=== PATIENT | female | born 1950 | race Caucasian/White ===

== ENCOUNTER 2023-02-05 13:26 | Outpatient (CLI) | payer MEDICARE, SELFPAY ==
[2023-02-05 14:11] LABS: Anion Gap 7 mmol/L (8-16); Blood Urea Nitrogen 21 mg/dL (7-17); Carbon Dioxide 28 mmol/L (22-30); Chloride 106 mmol/L (98-107); Estimated Glomerular Filt Rate > 60; Glucose 100 mg/dL (65-110); Potassium 3.9 mmol/L (3.4-5.0); Sodium 141 mmol/L (137-145)
== END 2023-02-05 13:27 | disposition home or self-care (01) ==
LOC: ANHWCLAB 13:27
PROVIDERS: PCP Internal Medicine; Visit Provider Internal Medicine Endocrinology, Diabetes & Metabolism
DX: M81.0 Age-related osteoporosis without current pathological fracture (principal); E55.9 Vitamin D deficiency, unspecified
CPT/HCPCS: 36415; 80048; 82306

== ENCOUNTER 2024-08-26 13:41 | Outpatient (CLI) | payer MEDICARE, SELFPAY ==
--- NOTE | ~2024-08-26 | DEXA_ITS ---
Bone Density Report Name: NITISH PIERCE Age: 73 Sex: Female Ethnicity: White Date of : 1950 Indication: postmenopausal; screening for osteoporosis; parental hip fracture; height loss; prior fracture; cancer; Referring Provider: BERNARDO ANDERSON Study: Bone densitometry was performed. Exam Date: August 26, 2024 Accession number: [id number] Bone Density: Region BMD T-score Z-score Classification AP Spine(L1-L4) 0.818 -2.1 0.2 Osteopenia Femoral Neck (Left) 0.616 -2.1 -0.1 Osteopenia Total Hip (Left) 0.762 -1.5 0.2 Osteopenia World Health Organization criteria for BMD impression classify patients as: Normal (T-score at or above -1.0), Osteopenia (T-score between -1.0 and -2.5), or Osteoporosis (T-score at or below -2.5). 10-year Fracture Risk: FRAX not reported because: Prior hip or vertebral fracture Treated for osteoporosis Clinical Information Provided by Patient: Have had a previous hip or vertebral fracture Has had a low trauma fracture Parent has had a hip fracture Is being treated for osteoporosis Has used the following medications: Boniva (i.e. ibandronate), Vitamin D Has the following medical conditions: Cancer Patient maximum height was 67 Menopause Age: 50 No regular weight bearing exercise Onset of menses at age 14 Number of children 3 Impression: The patient has low bone mass, based on the Total Spine T-score. The patient has risk factors, including: parental hip fracture, previous fracture. Discussion: It is important to ask patients whether they are taking their medications and to encourage continued and appropriate compliance with their osteoporosis therapies to reduce fracture risk. It is also important to review their risk factors and encourage appropriate calcium and vitamin D intakes, exercise, fall prevention and other lifestyle measures. Follow-Up: Consider a repeat BMD and Vertebral Fracture Assessment (VFA) exam in 2 years or sooner if medically necessary, to reassess this patient's status. Reported by: ELYSIA on 08/26/2024 2:19:00 PM. Reviewed, dictated and finalized at location AShanna SUN
--- OUTSIDE RECORDS SUMMARY | 2024-08-26 15:18 | XMS_ITS | Encounter Summary ---
Author Organization [facility] Address [address] [place] [address] Care Team Providers Care Senior Staff Specialized Employment Name Role Phone Xavier Montesinos MD Unavailable Unavail able Xavier Montesinos MD Primary Care Provider U Carol Murray NP Primary Care Provider [phone] Ivanna Ferreira MD Primary Care Provider [phone] Mark Pankaj DO Unavailable [phone] Encounter Details Date Type Department Care Team (Late st Contact Info) Description 04/06/2013 Abstract [facility] [address] [place] [address] , Generic MD Leander Social History Tobacco Use Types Packs/Day Years Used Date Smoking Tobacco: Never Assessed Comments Unknown Sex and Gender Information Value Date Recorded Sex Assigned at Female 06/24/2024 8:59 AM PROFESSOR/NURSE ANESTHETIST Legal Sex Female 4:24 PM CDT Gender Identity Not on file Sexual Orientation Not on file documented as of this encounter Plan of Treatment Upcoming Encounters Date Type Department Care Team (Late st Contact Info) Description 09/02/2024 8:00 AM CDT Office Visit [facility] Family & Internal Medicine [facility] [address] [place] [address] [place] [address] [facility]. [address] [place] [address] documented as of this encounter Visit Diagnoses Not on filedocumented in this encounter Care Teams Senior Staff Specialized Employment Relationship Specialty Start Date End Date Xavier Montesinos MD PCP - [facility] - [facility] Attributed Provider 08/08/18 06/10/20 Xavier Montesinos MD PCP - General INTERNAL MEDICINE 11/19/18 09/13/22 [place] [address] [facility] [place] [address] PCP - General Nurse Practitioner Family 09/14/22 10/03/22 [place] [address] [facility]. [address] [place] [address] PCP - General FAMILY PRACTICE 10/04/22 [place] [address] [facility] [address] [place] [phone] ORTHOPAEDIC SURGERY 04/02/24 documented as of this encounter
--- OUTSIDE RECORDS SUMMARY | 2024-08-26 15:18 | XMS_ITS | Clinical Summary ---
Author Organization [facility] Address [address], [facility] [address] [place] [address] Phone Care Team Providers Care Chefs Name Role Phone Donnell Roberts MD Unavailable [phone] Xavier Montesinos MD Primary Care Provider + Allergies Active Allergy Reactions Criticality Noted Date Comments Wound Dressing Adhesive Rash Low 02/20/2023 Medications Ascorbic Acid 500 MG Capsule CR Take 2 Capsules by mouth. 01/10/2016 Active Cholecalciferol 50 mcg Tablet Take 1 Tablet by mouth daily. Active ibuprofen (MOTRIN) 400 MG Tablet Take 400 mg by mouth. 01/20/2018 Active Daily Multiple Vitamins Tablet Take 1 Tablet by mouth daily. 06/04/2013 Active Omeprazole Magnesium 20 MG Tablet Delayed Response Take 1 Tablet by mouth daily. 06/04/2013 Active diclofenac (VOLTAREN) 75 MG Tablet Delayed Response Take 75 mg by mouth 2 times daily. 01/08/2023 Active ibandronate (BONIVA) 150 MG Tablet TAKE 1 TABLET BY MOUTH MONTHLY 02/09/2023 Active exemestane (AROMASIN) 25 MG TabletIndicatio ns:Ductal carcinoma in situ (DCIS) of right breast Take 1 Tablet by mouth daily 90 Tablet 3 03/26/2024 Active Active Problems No known active problems Immunizations Immunization Administration Dates Next Due Influenza Vaccine,unspecifie d Formulation 03/27/2019,03/19/2018,03/26/2016,2012 Influenza, High-dose, Quadrivalent 03/23/2021, Influenza, Seasonal, Injecta ble, Undefined 03/30/2013 Influenza, high-dose, trivalent, PF 03/15/2020 Pneumococcal Vaccine - 13 Valent 08/10/2019 Pneumococcal Vaccine Adult - 23 Valent 08/17/2020 TDAP Vaccine 12/28/2019 Td Vaccine (preservative free) 12/15/2013 Zoster Vaccine Recombinant 07/28/2019,04/22/2019 Zoster Vaccine, live 03/18/2015 Family History Medical History Relation Name Comments Cancer Father lung Emphysema Father Diabetes Maternal Grandmother Heart Disease Maternal Grandmother Kidney Disease Maternal Grandmother Macular Degeneration Maternal Grandmother Congestive Heart Failure Mother Dementia Mother Heart Disease Mother Hypertension Mother Macular Degeneration Mother Thyroid Disease Mother Cancer Sister endometrial Relation Name Status Comments Father Maternal Grandfather Maternal Grandmother Mother Alive Paternal Grandfather Paternal Grandmother Sister Social History Tobacco Use Types Packs/Day Years Used Date Smoking Tobacco: Never Smokeless Tobacco: Never Tobacco Cessation:Counseling Given: Not Answered Alcohol Use Standard Drinks/Week Comments Yes 0 (1 standard drink = 0.6 oz pur e alcohol) occassionally PHQ-2 Answer Date Recorded Total Score - Questions 1-9 0 05/0 10/2021 Comments Unknown Sex and Gender Information Value Date Recorded Sex Assigned at Not on file 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 Gender Identity Not on file Sexual Orientation Not on file Last Filed Vital Signs Vital Sign Reading Time Taken Comments Blood Pressure 122/82 03/26/2024 8:28 AM CDT Pulse 53 03/26/2024 8:28 AM CDT Temperature 35.8 C (96.4 F) 03/26/2024 8:28 AM CDT Respiratory Rate 18 03/26/2024 8:28 AM CDT Oxygen Saturation 98% 03/26/2024 8:28 AM CDT Inhaled Oxygen Concentration - - Weight 85.2 kg (187 lb 12.8 oz) 03/26/2024 8:28 AM CDT Height 167.6 cm (5' 6 ) 03/26/2024 8:28 AM CDT Body Mass Index 30.31 03/26/2024 8:28 AM CDT Plan of Treatment Upcoming Encounters Date Type Department Care Team (Late st Contact Info) Description 09/24/2024 8:45 AM CDT Office Visit [facility] [address] [place] [address] Donnell Roberts MD [address] [place] [address] Health Maintenance Due Date Last Done Comments Hepatitis C Virus (HCV) Screening 1950 Cologuard 2000 Immunochemical Fecal Occult Blood 2000 Respiratory Syncytial Virus (RSV) Immunization (Adult) (1 - Risk 60-74 years 1-dose series) 2010 SARS-COV-2 Immunization ( season) 2024 05/23/2023, 12/07/2021, 05/13/2021, Additional history exists DEXA Bone Density 04/13/2024 04/13/2022 Mammogram 04/15/2024 04/15/2023, 11/2022, 04/13/2022, Additional history exists Colonoscopy 04/28/2031 04/28/2021, 06/10/2010 Colorectal Cancer Screening 04/28/2031 Td Immunization Every 10 Years (Adults With 1 Tdap) 10/01/2033 10/02/2023, 12/28/2019, 12/15/2013 04/28/2021, 06/10/2010 Zoster Immunization Completed 07/28/2019, 04/22/2019, 03/18/2015 Pneumococcal Immunization (50+ years) Completed 08/17/2020, 08/10/2019 DTaP/Tdap/Td Immunization Discontinued 2023, 12/28/2019, 12/15/2013 Influenza Immunization Completed , 03/20/2023, 03/28/2022, Additional history exists Hepatitis B Immunization Aged Out No longer eligible based on patient's age to complete this topic Meningococcal Immunization (ACWY) Aged Out No longer eligible based on patient's age to complete this topic Rotavirus Immunization Aged Out No lo nger eligible based on patient's age to complete this topic Insurance MEDICARE C [employer]ET[employer] Care Teams Chefs Relationship Specialty [place] [address] [place] [address] PCP - General Internal Medicine 10/12/21 Donnell Roberts MD [address] [place] [phone] Consulting Physician Oncology 05/01/21
--- OUTSIDE RECORDS SUMMARY | 2024-08-26 15:18 | XMS_ITS | Encounter Summary ---
Author Organization [facility] Address [address] [place] [address] Phone Care Team Providers Care Police Matron Name Role Phone Donnell Roberts MD Unavailable [phone] Xavier Montesinos MD Primary Care Provider + Reason for Visit * Reason Comments Medication Refill Encounter Details Date Type Department Care Team (Late st Contact Info) Description 07/29/2022 Refill [facility] [address] [phone] Donnell Roberts MD [address] [place] [phone] Medication Refill Social History Tobacco Use Types Packs/Day Years Used Date Smoking Tobacco: Never Smokeless Tobacco: Never Alcohol Use Standard Drinks/Week Comments Yes 0 (1 standard drink = 0.6 oz pur e alcohol) occassionally PHQ-2 Answer Date Recorded Total Score - Questions 1-9 0 05/0 10/2021 Comments Unknown Sex and Gender Information Value Date Recorded Sex Assigned at Not on file 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 Please fill if appropriate. ILITY STRATEGIST documented in this encounter Plan of Treatment Upcoming Encounters Date Type Department Care Team (Late st Contact Info) Description 09/24/2024 8:45 AM CDT Office Visit [facility] [address] [phone] Donnell Roberts MD [address] [place] [phone] documented as of this encounter Visit Diagnoses Not on filedocumented in this encounter Care Teams Police Matron Relationship Specialty Start [place] [address] [place] [address] PCP - General Internal Medicine 10/12/21 Donnell Roberts MD [address] [place] [phone] Consulting Physician Oncology 05/01/21 documented as of this encounter
--- OUTSIDE RECORDS SUMMARY | 2024-08-26 15:18 | XMS_ITS | Clinical Summary ---
Author Organization [facility] Address [address] [place] [address] Care Team Providers Care Account Services Coordinator Name Role Phone Ivanna Ferreira MD Primary Care Provider [phone] Flores Pankaj DO Unavailable [phone] Allergies Active Allergy Reactions Criticality Noted Date Comments Tape Rash Low 02/20/2023 Medications Ascorbic Acid (VITAMIN C) 500 MG CapIndications: Supplement Take 2 capsules by mouth daily. Indications: Supplement 6 Active DAILY MULTIPLE VITAMINS TabIndications: Supplement Take 1 tablet by mouth daily. Indications: Supplement 3 Active omeprazole EC (PRILOSEC OTC) 20 MG tabletIndicatio ns:GERD Take 1 tablet (20 mg total) by mouth daily. Indications: GERD 3 Active Cholecalciferol (VITAMIN D3) 2000 units TabIndications: Supplement Take 1 tablet (50 mcg total) by mouth daily. Indications: Supplement Active exemestane (AROMASIN) 25 MG tabletIndicatio ns:Hormone Therapy Take 1 tablet by mouth daily. 3 Active ibandronate (BONIVA) 150 MG tabletIndicatio ns:Bone Health Take 1 tablet (150 mg total) by mouth every 30 (thirty) days. Indications: Bone Health 3 Active scopolamine (TRANSDERM-SCOP ) 1 MG/3DAYS patchIndication s:Motion sickness, subsequent encounter Place 1 patch onto the skin every third day. 7 patch 2 5 Active Active Problems Problem Noted Date Diagnosed Date Olecranon bursitis, right elbow 06/22/2024 Assessment & Plan (06/22/2024 6:01 PM NUCLEAR REACTOR TECHNICIAN): Recommendation at this time, we went over the risk benefits as well as the alternatives.She will gradually increase her activities as tolerated. We offered an aspiration of her olecranon bursa , so she'd like to hold off on that for now. We'll see her back as needed. Varicose veins of right upper extremity 06/22/19 25 Assessment & Plan (06/22/2024 6:20 PM NUCLEAR REACTOR TECHNICIAN): Discoloration only located on patients right hand Closed fracture of superior ramus of right pubis with routine healing, subsequent encounter 05/11/2024 Assessment & Plan (05/11/2024 1:40 PM NUCLEAR REACTOR TECHNICIAN): Recommendation at this time, we did look at her labs. Our labs were only from October, so certainly nothing recent. She states she has had more recent labwork. They're just not in our system. At the time, the only thing that was slightly abnormal was her GFR being in the high 70s, suggesting some mild kidney disease. Her hemoglobin and hematocrit were stable at the time as well as potassium and chloride, so I don't think there was an electrolyte issue. She's going to follow up with her primary care with that dizziness and fall. We'll see her back in six weeks for the fracture. I don't think I'll need another x-ray. Just want to make sure she's progressing well. We'll also get her set up with that parking placard as she's just getting out of her wheelchair and starting to use the walker a little bit more. Again, we'll see her in six weeks. History of dizziness 05/11/2024 Pubic ramus fracture, right, closed, initial encounter ([facility]) 04/12/2024 Assessment & Plan (04/12/2024 9:34 AM NUCLEAR REACTOR TECHNICIAN): will continue with formal physical therapy We refilled her pain medications. We'll see her back in four weeks with an x- ray. Status post fall 04/12/2024 S/P hip replacement, right 10/28/2023 Assessment & Plan (02/25/2024 8:49 AM CDT): Recommendation at this time continue with her progressive range of motion strengthening maintain her hip precautions we offered six months to a year or as needed, she would rather come back as needed. So we will see her back as needed. Assessment & Plan (11/26/2023 9:08 AM CDT): Recommendation at this time is to continue with a progressive range motion and strengthening. We'll see her back in three months for a repeat evaluation. Assessment & Plan (10/28/2023 2:11 PM CDT): Recommendation at this time is to continue with a progressive range of motion and strengthening. We'll get her set up with outpatient physical therapy here in [place]. We'll get her a handicap sticker, implant card, and follow-up in four weeks with an x-ray. 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 Cannot do non-steroidal anti-inflammatories as it elevated her blood pressure the last time. She is wanting an injection for her right wrist today as she is wanting to hold off on any sugical intervention for the CMC joint at this time. She understands that the injection may elevate her blood sugars for a few days. She would like to avoid physical therapy and bracing for now as she likes to quit. For the right hip, she wants to proceed with total hip arthroplasty on the right on 10/15/23 at [place]. Steroid was injected to the first dorsal compartment of the right wrist. Tolerated it well. Patient will be seen back after surgery. Prediabetes 09/02/2023 Elevated LDL cholesterol level 09/02/2023 Age-related osteoporosis wit yoshiut current pathological fracture 08/20/2022 COVID-19 03/14/2022 Ductal carcinoma in situ (DCIS) of right breast 04/19/2021 Colon cancer screening 04/17/2021 Overview (04/17/2021): Added automatically from request for surgery [id number] Breast mass, right 03/17/2021 Lower abdominal pain 05/04/2019 BMI 29.0-29.9,adult 01/14/2019 Acute pain of left knee 01/14/2019 Functional diarrhea 01/14/2019 Vitamin D deficiency 11/01/2017 GERD (gastroesophageal reflux disease) 5 Diverticulitis of colon 07/28/2013 Resolved Problems Problem Noted Date Diagnosed Date Resolved Date Wrist pain, chronic 11/01/2017 01/15/20 19 Immunization due 03/26/2016 01/14/2019 Acute bronchitis 02/09/2016 01/14/2019 Sore throat 01/16/2016 01/14/2019 Abdominal pain, periumbilical 04/06/2015 01/14/2019 Hematochezia 07/28/2013 01/14/2019 Acute conjunctivitis of right eye 06/04/2013 01/14/2019 Acute sinusitis 06/04/2013 01/14/2019 Encounter for preventive health examination 07/08/2012 01/14/2019 Encounters Date Type Department Care Team Description 08/24/2024 Patient Outreach [facility] [id number] [place] [phone] Joya Cornejo MA Pre-visit Gap Closure 07/20/2024 9:20 AM NUCLEAR REACTOR TECHNICIAN - 07/20/2024 11:59 PM NUCLEAR REACTOR TECHNICIAN Hospital Encounter [facility] [address] [place] [address] Sree Helms PT Morton, Steven, DO Jnt Pain/ Pelvis Discharge Disposition: Home or Self Care (Routine Discharge) 07/20/2024 Travel 07/17/2024 1:20 PM NUCLEAR REACTOR TECHNICIAN Office Visit [facility] [id number] [place] [phone] Ivanna Ferreira MD Medication Management 07/17/2024 Travel 07/16/2024 8:17 AM NUCLEAR REACTOR TECHNICIAN - 07/16/2024 11:59 PM NUCLEAR REACTOR TECHNICIAN Hospital Encounter [facility] [address] [place] [address] Pankaj Flores, Sujatha Mccauley L, GEOPHYSICAL LABORATORY SUPERVISOR Pelvic Joint Pain Discharge Disposition: Home or Self Care (Routine Discharge) 07/16/2024 Travel 07/13/2024 8:25 AM NUCLEAR REACTOR TECHNICIAN - 07/13/2024 11:59 PM NUCLEAR REACTOR TECHNICIAN Hospital Encounter [facility] [address] [place] [address] Sree Helms, PT Pankaj Flores, Jnt Pain/ Pelvis Discharge Disposition: Home or Self Care (Routine Discharge) 07/13/2024 Travel 07/08/2024 8:02 AM NUCLEAR REACTOR TECHNICIAN - 07/08/2024 11:59 PM NUCLEAR REACTOR TECHNICIAN Hospital Encounter [facility] [address] [place] [address] Sree Helms, PT Pankaj Flores, Jnt Pain/ Pelvis Discharge Disposition: Home or Self Care (Routine Discharge) 07/08/2024 Travel 07/06/2024 8:00 AM NUCLEAR REACTOR TECHNICIAN - 07/06/2024 11:59 PM NUCLEAR REACTOR TECHNICIAN Hospital Encounter [facility] [address] [place] [address] Pankaj Flores, Sujatha Mccauley, GEOPHYSICAL LABORATORY SUPERVISOR Hip Pain Discharge Disposition: Home or Self Care (Routine Discharge) 07/06/2024 Travel 07/01/2024 8:08 AM NUCLEAR REACTOR TECHNICIAN - 07/01/2024 11:59 PM NUCLEAR REACTOR TECHNICIAN Hospital Encounter [facility] [address] [place] [address] Sree Helms, PT Pankaj Flores, Jnt Pain/ Pelvis Discharge Disposition: Home or Self Care (Routine Discharge) 07/01/2024 Travel 06/29/2024 8:07 AM NUCLEAR REACTOR TECHNICIAN - 06/29/2024 11:59 PM NUCLEAR REACTOR TECHNICIAN Hospital Encounter [facility] [address] [place] [address] Pankaj Flores DO Eddy, Sandi L, GEOPHYSICAL LABORATORY SUPERVISOR Hip Pain Discharge Disposition: Home or Self Care (Routine Discharge) 06/29/2024 Travel 06/24/2024 8:03 AM NUCLEAR REACTOR TECHNICIAN - 06/24/2024 11:59 PM NUCLEAR REACTOR TECHNICIAN Hospital Encounter [facility] [address] [place] [address] Sree Helms, PT Pankaj Flores DO Jnt Pain/ Pelvis Discharge Disposition: Home or Self Care (Routine Discharge) 06/24/2024 Travel 06/22/2024 9:35 AM NUCLEAR REACTOR TECHNICIAN - 06/22/2024 11:59 PM NUCLEAR REACTOR TECHNICIAN Hospital Encounter [facility] [address] [place] [address] Pankaj Flores DO Eddy, Sandi L, GEOPHYSICAL LABORATORY SUPERVISOR Pelvic Pain Discharge Disposition: Home or Self Care (Routine Discharge) 06/22/2024 8:00 AM NUCLEAR REACTOR TECHNICIAN Office Visit [facility] [address] [address] Pankaj Flores DO Fracture (Right pubic ramus fracture 04/02/2024) 06/22/2024 7:05 AM NUCLEAR REACTOR TECHNICIAN - 06/22/2024 9:34 AM NUCLEAR REACTOR TECHNICIAN Hospital Encounter [facility] Imaging [address] [place] [address] Pankaj Flores DO Discharge Disposition: Home or Self Care (Routine Discharge) 06/22/2024 Travel 06/19/2024 Orders Only [facility] [address] [place] [address] [place] [address] Pankaj Flores DO 06/18/2024 Scan [facility] Scanned, [facility] Lab (SCAN) 06/18/2024 Scan [facility] Scanned, [facility] 06/18/2024 Scan [facility] Scanned, [facility] Dilated Eye Exam (SCAN) 06/17/2024 8:08 AM NUCLEAR REACTOR TECHNICIAN - 06/17/2024 11:59 PM NUCLEAR REACTOR TECHNICIAN Hospital Encounter [facility] [address] [place] [address] Sree Helms, PT Pankaj Flores, Pelvic Pain Discharge Disposition: Home or Self Care (Routine Discharge) 06/17/2024 Travel 06/11/2024 8:15 AM NUCLEAR REACTOR TECHNICIAN - 06/11/2024 11:59 PM NUCLEAR REACTOR TECHNICIAN Hospital Encounter [facility] [address] [place] [address] Sree Helms, PT Pankaj Flores, Pelvis Pain Discharge Disposition: Home or Self Care (Routine Discharge) 06/11/2024 Travel 06/08/2024 8:09 AM NUCLEAR REACTOR TECHNICIAN - 06/08/2024 11:59 PM NUCLEAR REACTOR TECHNICIAN Hospital Encounter [facility] [address] [place] [address] Pankaj Flores DO Eddy, Sandi L, GEOPHYSICAL LABORATORY SUPERVISOR Hip Trauma Discharge Disposition: Home or Self Care (Routine Discharge) 06/08/2024 Travel 06/05/2024 8:06 AM NUCLEAR REACTOR TECHNICIAN - 06/05/2024 11:59 PM NUCLEAR REACTOR TECHNICIAN Hospital Encounter [facility] [address] [place] [phone] Pankaj Flores DO Eddy, Sandi L, GEOPHYSICAL LABORATORY SUPERVISOR Jnt Pain/ Pelvis Discharge Disposition: Home or Self Care (Routine Discharge) 06/05/2024 Travel 06/02/2024 8:06 AM NUCLEAR REACTOR TECHNICIAN - 06/02/2024 11:59 PM NUCLEAR REACTOR TECHNICIAN Hospital Encounter [facility] [address] [place] [address] Pankaj Flores DO Eddy, Sandi L, GEOPHYSICAL LABORATORY SUPERVISOR Hip Trauma Discharge Disposition: Home or Self Care (Routine Discharge) 06/02/2024 Travel 05/29/2024 9:34 AM NUCLEAR REACTOR TECHNICIAN - 05/29/2024 11:59 PM NUCLEAR REACTOR TECHNICIAN Hospital Encounter [facility] [address] [place] [address] Pankaj Flores, DO Reyes, Sujatha Ramey, GEOPHYSICAL LABORATORY SUPERVISOR Jnt Pain/ Pelvis Discharge Disposition: Home or Self Care (Routine Discharge) 05/29/2024 Travel from Last 3 Months Immunizations Name Administration Dates Next Due FLUAD (IIV, Trivalent, 0.5 M L Pre-filled Syringe) 03/21/2024 Fluad influenza vaccine, Christopher drivalent (aIIV4), Inactivated, adjuvanted, preservative free, 0.5 mL,IM use 03/28/2022 Fluzone High Dose - >Age 65 (Prefilled Syringe) 03/20/2023,03/23/2021,03/15/2020 H1N1 2009 Influenza Vaccine 03/27/2019,1 ,03/26/2016,2012 Influenza (Generic) 03/30/2013,03/30/2013 Influenza Adult (Generic) 03/23/2021,,03/19/2018,2015 MODERNA COVID-19 (12+) MRNA, LNP-S, PF, 100 MCG/ 0.5 ML DOSE 07/05/2020,06/07/2020 MODERNA COVID-19 (DIRECTOR OF [employer]), MRNA, LNP-S, PF, 50 MCG/ 0.25 ML DOSE 12/07/2021,05/13/2021 Pneumococcal (Pneumovax 23) 08/17/2020 Pneumococcal (Prevnar 13) 08/10/2019 Shingrix 07/28/2019,04/22/2019 Td (Tenivac) preservative free 12/15/2013 Td, Adsorbed, Preservative F ree, Adult Use, Lf Unspecified 12/15/2013 Tdap (Boostrix) 12/28/2019 Tdap (Generic) 10/02/2023 Zoster (Zostavax) [address] Unt/0.65Ml 03/18/2015 Family History Medical History Relation Comments No Known Problems Brother Emphysema Father Lung Cancer Father No Known Problems Maternal Aunt No Known Problems Maternal Grandfather No Known Problems Maternal Grandmother No Known Problems Maternal Uncle Cancer Mother Heart Mother Heart Disease Mother Hypertension Mother Macular Degeneration Mother Thyroid Mother No Known Problems Paternal Aunt No Known Problems Paternal Grandfather No Known Problems Paternal Grandmother No Known Problems Paternal Uncle No Known Problems Sister Breast Cancer Neg Hx Relation Status Comments Brother Father Maternal Aunt Maternal Grandfather Maternal Grandmother Maternal Uncle Mother Alive Paternal Aunt Paternal Grandfather Paternal Grandmother Paternal Uncle Sister Social History Tobacco Use Types Packs/Day Years Used Date Smoking Tobacco: Never Smokeless Tobacco: Never Tobacco Cessation:Counseling Given: No Comments:na Alcohol Use Standard Drinks/Week Comments Yes 1.7 (1 standard drink = 0.6 oz p ure alcohol) occ OASIS D0700: Social Isolation Answer Da te Recorded Frequency of experiencing loneliness or isolatio n Never 10/30/2023 OASIS A1250: Transportation Answer Date Recorded Lack of Transportation (Medical) No 10/30/2023 Lack of Transportation (Non-Medical) No 10/30/2023 Patient Unable or Declines to Respond No 10/30/2023 OASIS B1300: Health Literacy Answer Alverto e Recorded Frequency of needing help to read materials from doctor or pharmacy Never 10/30/2023 [facility] Utilities Answer Date Recorded In the past 12 months has [employer], or water [employer] threatened to shut off services in your home? No 10/15/2023 Humiliation, Afraid, Rape, and Kick questionnair e Answer Date Recorded Within the last year, have y ou been afraid of your partner or ex-partner? No 10/15/2023 Within the last year, have y ou been humiliated or emotionally abused in other ways by your partner or ex-partner? No Within the last year, have y ou been kicked, hit, slapped, or otherwise physically hurt by your partner or ex-partner? No 10/15/2023 Within the last year, have y ou been raped or forced to have any kind of sexual activity by your partner or ex-partner? No 10/15/2023 Social Connection and Isolat ion Panel [NHANES] Answer Date Recorded In a typical week, how many times do you talk on the phone with family, friends, or neighbors? More than three times a week 10/15/2023 How often do you get togethe r with friends or relatives? More than three times a week 10/15/2023 How often do you attend [facility] or pentecostal services? More than 4 times per year 10/15/2023 Do you belong to any clubs o r organizations such as congregation groups, unions, fraternal or athletic groups, or school groups? Yes 10/15/2023 How often do you attend meet ings of the clubs or organizations you belong to? More than 4 times per year 10/15/2023 Are you , , di vorced, , never , or living with a partner? 10/15/2023 AUDIT-C Answer Date Recorded Q1: How often do you have a drink containing alc ohol? Monthly or less 10/15/2023 Q2: How many drinks containi ng alcohol do you have on a typical day when you are drinking? 1 or 2 10/15/2023 Q3: How often do you have si x or more drinks on one occasion? Never 10/15/2023 Overall Financial Resource Strain (CARDIA) Answe r Date Recorded How hard is it for you to pa y for the very basics like food, housing, medical care, and heating? Not hard at all 10/15/2023 PHQ-2 Answer Date Recorded Patient Health Questionnaire-2 Score 0 06/22/2024 [facility] - Occupational Stress Questionnaire Answer Date Recorded Do you feel stress - tense, restless, nervous, or anxious, or unable to sleep at night because your mind is troubled all the time - these days? Not at all 10/15/2023 Exercise Vital Sign Answer Date Recorde d On average, how many days pe r week do you engage in moderate to strenuous exercise (like a brisk walk)? 0 days 10/15/2023 On average, how many minutes do you engage in exercise at this level? 0 min 10/15/2023 Hunger Vital Sign Answer Date Recorded Within the past 12 months, y ou worried that your food would run out before you got the money to buy more. Never true 10/15/19 24 Within the past 12 months, t he food you bought just didn't last and you didn't have money to get more. Never true 10/15/2023 PRAPARE - Transportation Answer Date Re corded In the past 12 months, has l ack of transportation kept you from medical appointments or from getting medications? No 12/2023 In the past 12 months, has l ack of transportation kept you from meetings, work, or from getting things needed for daily living? No 10/15/2023 Housing Stability Vital Sign Answer Alverto e Recorded In the last 12 months, was t here a time when you were not able to pay the mortgage or rent on time? No 10/15/2023 In the past 12 months, how m any times have you moved where you were living? 1 10/15/2023 At any time in the past 12 [facility], were you homeless or living in a fdc (including now)? No 10/15/2023 Education Answer Date Recorded What is the highest level of school you have completed or the highest degree you have received? Master's degree (e.g., MA, MS, Wilbur, MEd, EMPLOYEE RELATIONS SPECIALIST, [employer]IS) 01/14/2019 Comments No Sex and Gender Information Value Date Recorded Sex Assigned at Female 06/24/2024 8:59 AM NUCLEAR REACTOR TECHNICIAN Legal Sex Female 4:24 PM CDT Gender Identity Not on file Sexual Orientation Not on file Last Filed Vital Signs Vital Sign Reading Time Taken Comments Blood Pressure 105/71 07/17/2024 1:45 PM NUCLEAR REACTOR TECHNICIAN Pulse 78 07/17/2024 1:25 PM NUCLEAR REACTOR TECHNICIAN Temperature 36.5 C (97.7 F) 07/17/2024 1:25 PM NUCLEAR REACTOR TECHNICIAN Respiratory Rate 16 07/17/2024 1:25 PM NUCLEAR REACTOR TECHNICIAN Oxygen Saturation 98% 07/17/2024 1:25 PM NUCLEAR REACTOR TECHNICIAN Inhaled Oxygen Concentration - - Weight 84.8 kg (187 lb) 07/17/2024 1:25 PM NUCLEAR REACTOR TECHNICIAN Height 167.6 cm (5' 6 ) 07/17/2024 1:25 PM NUCLEAR REACTOR TECHNICIAN Body Mass Index 30.18 07/17/2024 1:25 PM NUCLEAR REACTOR TECHNICIAN Plan of Treatment Upcoming Encounters Date Type Department Care Team (Late st Contact Info) Description 09/02/2024 8:00 AM CDT Office Visit [facility] [address] [place] [address] [place] [address] [facility]. [address] [place] [address] Health Maintenance Due Date Last Done Comments Hepatitis C 1968 Annual Medicare Wellness Visit 11/05/2015 COVID-19 Vaccine ( season) 2024 05/23/2023, 12/07/2021, 05/13/2021, Additional history exists RSV Immunization or 60+ Years (1 - 1-dose 75+ series) 2025 Mammogram Screening 05/22/2026 05/22/2024, 04/15/2023, 04/13/2022, Additional history exists Colorectal Cancer Screening Colonoscopy (10 Years) 04/28/2031 04/28/2021, 06/10/2010, 01/07/2009 DTaP, Tdap and Td Vaccines (3 - Td or Tdap) 10/01/2033 10/02/2023, 12/28/2019, 12/15/2013, Additional history exists Zoster Vaccines Completed 07/28/2019, 04/10, 03/18/2015 Pneumococcal Vaccine: 65+ Years Completed 08/17/2020, 08/10/2019 Dexa Scan (General) Completed 04/13/2022, Influenza Adult Completed 03/21/2024, 03/10, 03/28/2022, Additional history exists PHQ-2 (Physician [facility]) Completed 06/22/2024 Meningococcal B Vaccine Aged Out No l onger eligible based on patient's age to complete this topic Meningococcal Vaccine Aged Out No micah mathew eligible based on patient's age to complete this topic RSV Immunizations Under 20 Months Aged Out No longer eligible based on patient's age to complete this topic Goals Goal Patient Goal Type Associated Problems Recent Progress Patient-Stated? Author Patient will return to prior living situation and remain independent in ADLs upon discharge from hospital Lifestyle No Marcy Galvan RN Medical Devices Implanted Type Area Insurance Coder Device Identifier Shelf Expiration Date Model / Serial / Lot Pump Pain On-Q 400ml - [id number] Implanted:Qty: 1 on 10/15/2023 by Pankaj Flores DO at [facility] Pump [employer] [id number] / / Warren Gription Acetabular Shell Sector 50mm Od Implanted:Qty: 1 on 10/15/2023 by Pankaj Flores DO at [facility] [employer] 07/10/2033 [id number] / / [id number] Acetabular Liner Implanted:Qty: 1 on 10/15/2023 by Pankaj Flores DO at [facility] Right: Acetabulum [employer] - A [employer] 06/09/2027 [id number] / / [id number] Femoral Stem Implanted:Qty: 1 on 10/15/2023 by Pankaj Flores DO at [facility] Right: Femur [employer] 06/09/2033 [id number] / / [id number] Femoral Head Implanted:Qty: 1 on 10/15/2023 by Pankaj Flores DO at [facility] Right: Hip [employer] 05/09/2028 [id number] / / [id number] Procedures Procedure Name Priority Date/Time Associated Diagnosis Comments XR PELVIS 2V Routine 06/22/2024 7:13 AM NUCLEAR REACTOR TECHNICIAN Closed fracture of superior ramus of right pubis with routine healing, subsequent encounter OUTSIDE LAB (SCAN ORDER) Routine 06/18/2024 DIABETIC RETINOPATHY EXAM (NEGATIVE)(SCAN ORDER) Routine 06/18/2024 MG DIAG W MARIA C BILAT DIGI Routine 05/22/2024 10:31 AM NUCLEAR REACTOR TECHNICIAN Ductal carcinoma in situ (DCIS) of right breast BONE DENSITY/DEXA Routine 04/13/2022 1:4 3 PM CDT Postmenopausal status (age-related) (natural) COLONOSCOPY Routine 06/10/2010 12:00 AM NUCLEAR REACTOR TECHNICIAN from Last 3 Months or Most Recently Relevant to Health Maintenance Results * XR PELVIS 2V (06/22/2024 7:13 AM NUCLEAR REACTOR TECHNICIAN) Anatomical Region Laterality Modality Pelvis Radiographic Carmina ging 06/22/2024 7:55 AM NUCLEAR REACTOR TECHNICIAN Impressions 06/22/2024 7:58 AM NUCLEAR REACTOR TECHNICIAN IMPRESSION:===== 1. Right anterior pelvic fractures with interval healing suspected. No change in alignment is noted. 2. Osteoarthritis left hip. Referred By: Interpreted By: Kurt Fernandes MD, 06/22/2024 7:55 AM Narrative 06/22/2024 7:58 AM NUCLEAR REACTOR TECHNICIAN [address] [place] [address] Examination: Pelvis Exam Date/Time: 06/22/2024 7:06 AM Reason For Exam: fracture Comparison: 05/11/2024 Technique: 2 views of the pelvis was obtained. Findings: Fracture of the right pubis and superior and inferior pubic rami are noted. Sclerosis in this area suggestive interval healing. No change in alignment is noted. Right hip prosthesis is seen, unchanged in position. Joint space narrowing left hip with spur formation from the acetabulum is noted. Spurring sacroiliac joints is noted. ===== Procedure Note Kurt Fernandes MD - 06/22/[address] [place] [address] Examination: Pelvis Exam Date/Time: 06/22/2024 7:06 AM Reason For Exam: fracture Comparison: 05/11/2024 Technique: 2 views of the pelvis was obtained. Findings: Fracture of the right pubis and superior and inferior pubic ramiare noted. Sclerosis in this area suggestive interval healing. No changein alignment is noted. Right hip prosthesis is seen, unchanged in position. Joint space narrowing left hip with spur formation from the acetabulum isnoted. Spurring sacroiliac joints is noted. ===== IMPRESSION:===== 1. Right anterior pelvic fractures with interval healing suspected. Nochange in alignment is noted. 2. Osteoarthritis left hip. Referred By: Interpreted By: Kurt Fernandes MD, 06/22/2024 7:55 AM us Pankaj Flores DO GENERAL IMAGING Final Result * DIABETIC RETINOPATHY EXAM (NEGATIVE) (06/18/2024) [facility] Scanned SCANNING Final Resu lt [facility] * OUTSIDE LAB (06/18/2024) ALBUMIN/CREAT RATIO <30 [facility] 06/18/2024 [facility] Scanned SCANNING Final Resu lt [facility] * MG DIAG W MARIA C BILAT DIGI (05/22/2024 10:31 AM NUCLEAR REACTOR TECHNICIAN) Anatomical Region Laterality Modality Breast Bilateral Mammography, Rad iographic Imaging 05/22/2024 9:59 AM NUCLEAR REACTOR TECHNICIAN Impressions 05/22/2024 10:01 AM NUCLEAR REACTOR TECHNICIAN ===== IMPRESSION: ===== 1. No mammographic findings suggestive of malignancy. Assessment: ACR BI-RADS 2 - BENIGN FINDING(S) Recommendation: 1: Routine Screening Bilateral A negative or benign mammogram should not delay further workup and/or biopsy of a clinically suspicious finding or palpable abnormality. Regions of dense breast tissue may obscure an underlying mass. Ordered By: MIGUE MARTINEZ Interpreted By: Korey Saucedo MD, 05/22/2024 9:59 AM Narrative 05/22/2024 10:01 AM NUCLEAR REACTOR TECHNICIAN [facility] [address] [place] [address] Examination: Digital bilateral diagnostic mammogram Exam Date/Time: 05/22/2024 9:18 AM Reason For Exam: History of right breast cancer status post lumpectomy. Comparison: Diagnostic mammograms 04/15/2023, 04/13/2022, 03/01/2021, screening mammogram 02/04/2020. Technique: Digital diagnostic mammography of the bilateral breasts was performed. . This study was read with the assistance of a computer-aided detection system.3-D tomographic images were performed. Tissue density: There are scattered areas of fibroglandular density. Findings: Redemonstrated postoperative changes of right breast lumpectomy in the upper outer quadrant. Expected postsurgical scarring and distortion, as marked by the skin marker. No new area of focal asymmetry, dominant mass lesion, area of skin thickening, or cluster of suspicious appearing calcifications in the breast to suggest malignancy. Findings were discussed with the patient at the conclusion of the examination the presence of extractions technologist Reta. us Migue Martinez MD MAMMO Final Result * BONE DENSITY/DEXA (04/13/2022 1:43 PM CDT) Anatomical Region Laterality Modality Bone Bone Density 04/13/2022 1:44 PM CDT Impressions 04/13/2022 1:46 PM CDT Impression: BMD measured at left femoral neck at WHO category level of osteoporosis. BMD measured at AP lumbar spine at level of osteopenia. BMD measured at left total hip at level of normal. Ordered By: KENIA WHITAKER Interpreted By: Chris Smith MD, 04/13/2022 1:44 PM Narrative 04/13/2022 1:46 PM CDT Examination: DEXA Bone densitometry EXAM DATE: 04/13/2022 1:22 PM Clinical history: Postmenopausal. Dairy product consumption. Technique: DEXA bone minimal density evaluation was performed in the AP projection over the lumbar spine and over both hips in the AP projection utilizing standard imaging techniques. Assessment: The BMD measured at the AP spine L1-L4 is 0.897 g/cm2 with a T-score of -1.4 and a Z-Score of 0.8. The patient is considered osteopenic according to World Health Organization (WHO) criteria. Bone density is between 10 and 25% below young normal. Fracture risk is moderate. Treatment is advised. The BMD measured at the femur total left is 0.844 g/cm2 with a T-score of -0.8 and a Z-Score of 0.8. Bone density is up to 10% below young normal. This patient is considered normal according to the World Health Organization (WHO) criteria. Fracture risk is low. The BMD measured at the left femoral neck is 0.567 g/sq cm resulting in a T score of -2.5 and a Z score of -0.7, values at the WHO category level of osteoporosis. Recommendations: All patients should ensure an adequate intake of dietary calcium and vitamin D. The NOF recommend adults under the age of 50 need 1000 mg of calcium and 400-800 IU of vitamin D daily. Effective therapy for the prevention and treatment of osteoporosis include biphosphonates. Follow-up: People with diagnosed cases of osteoporosis or at high risk for fracture should have regular bone mineral density test. For patients eligible for Medicare, routine testing is allowed once every 2 years. Testing frequency can be increased to one year for patients who have rapidly progressing disease, those who are receiving or discontinuing medical therapy to restore bone mass, or have additional risk factors. Based on these results, a followup exam is recommended in no earlier than 2 years for routine follow-up. As early as 1 year to assess efficacy of new medication therapy for treatment of osteoporosis. Procedure Note Chris Smith MD - 04/13/2022 Examination: DEXA Bone densitometry EXAM DATE: 04/13/2022 1:22 PM Clinical history: Postmenopausal. Dairy product consumption. Technique: DEXA bone minimal density evaluation was performed in the APprojection over the lumbar spine and over both hips in the AP projectionutilizing standard imaging techniques. Assessment: The BMD measured at the AP spine L1-L4 is 0.897 g/cm2 with a T-score of-1.4 and a Z-Score of 0.8. The patient is considered osteopenicaccording to World Health Organization (WHO) criteria. Bone density isbetween 10 and 25% below young normal. Fracture risk is moderate.Treatment is advised. The BMD measured at the femur total left is 0.844 g/cm2 with a T-score of-0.8 and a Z-Score of 0.8. Bone density is up to 10% below youngnormal. This patient is considered normal according to the World HealthOrganization (WHO) criteria. Fracture risk is low. The BMD measured at the left femoral neck is 0.567 g/sq cm resulting in aT score of -2.5 and a Z score of -0.7, values at the WHO category level ofosteoporosis. Recommendations: All patients should ensure an adequate intake of dietary calcium andvitamin D. The NOF recommend adults under the age of 50 need 1000 mg ofcalcium and 400-800 IU of vitamin D daily. Effective therapy for theprevention and treatment of osteoporosis include biphosphonates. Follow-up: People with diagnosed cases of osteoporosis or at high risk for fractureshould have regular bone mineral density test. For patients eligible forMedicare, routine testing is allowed once every 2 years. Testing frequencycan be increased to one year for patients who have rapidly progressingdisease, those who are receiving or discontinuing medical therapy torestore bone mass, or have additional risk factors. Based on these results, a followup exam is recommended in no earlier than2 years for routine follow-up. As early as 1 year to assess efficacy ofnew medication therapy for treatment of osteoporosis. Impression: BMD measured at left femoral neck at WHO category level of osteoporosis. BMD measured at AP lumbar spine at level of osteopenia. BMD measured at left total hip at level of normal. Ordered By: KENIA WHITAKER Interpreted By: Chris Smith MD, 04/13/2022 1:44 PM us Kenia Whitaker MD DEXA Final Result * Colonoscopy (06/10/2010 12:00 AM NUCLEAR REACTOR TECHNICIAN) 06/10/2010 06/10/2010 Narrative [facility] TO EPIC CONVERSION - 06/10/2010 12:00 AM NUCLEAR REACTOR TECHNICIAN Documented hx of procedure Procedure Note Mahi Ryan MD - 04/13/2018 Documented hx of procedure us Mahi Tabor Md, MD GI PROCEDURE ORDERABLES Final Result [facility] TO EPIC CONVERSION from Last 3 Months or Most Recently Relevant to Health Maintenance Insurance [employer] Advance Directives * Full Code (Latest Code Status on File) Date Activated Date Inactivated Comments 10/17/2023 12:03 PM 04/02/2024 12:35 PM * Full Code Date Activated Date Inactivated Comments 10/15/2023 3:26 PM 10/16/2023 1:49 PM Care Teams Account Services Coordinator Relationship Specialty [place] [address] [facility] [place], [place] [id number] PCP - General FAMILY PRACTICE 10/04/22 [place] [address] [facility] [address] [place] [address] ORTHOPAEDIC SURGERY 04/02/24
--- OUTSIDE RECORDS SUMMARY | 2024-08-26 15:18 | XMS_ITS | Encounter Summary ---
Author Organization [facility] Address [address] [place] [address] Care Team Providers Care Hot Mill Tin Roller Name Role Phone Xavier Montesinos MD Primary Care Provider U Carol Murray NP Primary Care Provider [phone] Ivanna Ferreira MD Primary Care Provider [phone] Pankaj Flores DO Unavailable [phone] Encounter Details Date Type Department Care Team (Late st Contact Info) Description 03/09/2022 The A-Team Clubhouse Message Enc [facility] Family & Internal Medicine [address] [address] [place], [facility] Provider transderm patches Social History Tobacco Use Types Packs/Day Years Used Date Smoking Tobacco: Never Smokeless Tobacco: Never Alcohol Use Standard Drinks/Week Comments Yes 0 (1 standard drink = 0.6 oz pur e alcohol) occ PHQ-2 Answer Date Recorded PHQ-2 Score - If the patient scores above 3, please move on to questions 3-9 0 03/06/2022 Education Answer Date Recorded What is the highest level of school you have completed or the highest degree you have received? Master's degree (e.g., MA, MS, Wilbur, MEd, CHECKMAN, CHRIS) 01/14/2019 Comments No Sex and Gender Information Value Date Recorded Sex Assigned at Female 06/24/2024 8:59 AM HEALTH CARE LAW SPECIALIST Legal Sex Female 4:24 PM CDT Gender Identity Not on file Sexual Orientation Not on file COVID-19 Exposure Response Date Recorded In the last 10 days, have yo u been in contact with someone who was confirmed or suspected to have Coronavirus/COVID-19? No / Unsure 03/07/2022 12:47 PM CDT documented as of this encounter Plan of Treatment Upcoming Encounters Date Type Department Care Team (Late st Contact Info) Description 09/02/2024 8:00 AM CDT Office Visit [facility] Family & Internal Medicine [facility] [address] [place] [address] [place] [address] [place] [id number] documented as of this encounter Visit Diagnoses Not on filedocumented in this encounter Additional Health Concerns Assessment Noted Time PHQ-9 Depression Total Score: 0 04/14/20 12:34 PM CDT documented as of this encounter Care Teams Hot Mill Tin Roller Relationship Specialty Start Date End Date Xavier Montesinos MD PCP - General INTERNAL MEDICINE 11/19/18 09/13/22 [place] [address] [facility] [address] [address] [place] [address] PCP - General Nurse Practitioner Family 09/14/2209/09 [place] [address] [address] PCP - General FAMILY PRACTICE 10/04/22 [place] [address] [facility] [place] [address] [place] [address] ORTHOPAEDIC SURGERY 04/02/24 documented as of this encounter
--- OUTSIDE RECORDS SUMMARY | 2024-08-26 15:18 | XMS_ITS | Encounter Summary ---
Author Organization [facility] Address [address] [place] [address] Phone Care Team Providers Care Mud Analysis Well Logging Operator Name Role Phone Donnell Roberts MD Unavailable [phone] Xavier Montesinos MD Primary Care Provider + Reason for Visit * Reason Comments Medication Refill Encounter Details Date Type Department Care Team (Late st Contact Info) Description 03/19/2023 Refill [facility] [address] [place] [address] Jemima Valdez, ALL AROUND PATTERNMAKER, MEDICAL ASSISTANT INTERNAL MEDICINE [address] [place] [address] Medication Refill Social History Tobacco Use Types [...] on file Legal 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 No / Unsure 03/21/2023 8:21 AM CDT documented as of this encounter Functional Status * Question Answer Date of Assessment Author Little interest or pleasure in doing things Not at all 03/21/2023 8:30 AM CDT Marcy Hernandez CMA Feeling down, depressed, or hopeless Not at all 03/21/2023 8:30 AM CDT Marcy Hernandez CMA * Over the past 2 weeks, how often have you been bothered by any of the following problems? Question Answer Date of Assessment Author Patient Health Questionnaire -2 Score 0 03/21/2023 8:30 AM CDT Marcy Hernandez CMA documented as of this encounter Miscellaneous Notes * Telephone Encounter - Darshana James RN - 03/19/2023 8:00 AM CDT Refill request from pharmacy. Please fill if appropriate. documented in this encounter Plan of Treatment Upcoming Encounters Date Type Department Care Team (Late st Contact Info) Description 09/24/2024 8:45 AM CDT Office Visit [facility] [address] [address] Donnell Roberts MD [address] [place] [phone] documented as of this encounter Visit Diagnoses Diagnosis Ductal carcinoma in situ (DCIS) of right breast documented in this encounter Care Teams Mud Analysis Well Logging Operator Relationship Specialty Start [place] [address] [place] [address] PCP - General Internal Medicine 10/12/21 Donnell Roberts MD [address] [place] [phone] Consulting Physician Oncology 05/01/21 documented as of this encounter
--- OUTSIDE RECORDS SUMMARY | 2024-08-26 15:18 | XMS_ITS | Encounter Summary ---
Author Organization [facility] Address [address] [place] [address] Phone Care Team Providers Care Crisis Worker Name Role Phone Donnell Roberts MD Unavailable [phone] Xavier Montesinos MD Primary Care Provider + Reason for Visit * Reason Comments Medication Refill Encounter Details Date Type Department Care Team (Late st Contact Info) Description 05/29/2022 Refill [facility] [address] [address] Donnell Roberts MD [address] [place] [phone] Medication Refill Social History Tobacco Use [...] on file 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 Gender Identity Not on file Sexual Orientation Not on file documented as of this encounter Miscellaneous Notes * Telephone Encounter - Darshana James RN - 05/29/2022 8:44 AM CST Refill request from pharmacy, please fill if appropariate TRACTOR MECHANIC documented in this encounter Plan of Treatment Upcoming Encounters Date Type Department Care Team (Late st Contact Info) Description 09/24/2024 8:45 AM CDT Office Visit [facility] [address] [address] Donnell Roberts MD [address] [place] [address] documented as of this encounter Visit Diagnoses Not on filedocumented in this encounter Care Teams Crisis Worker Relationship Specialty Start [place] [address] [place] [address] PCP - General Internal Medicine 10/12/21 Donnell Roberts MD [address] [place] [phone] Consulting Physician Oncology 05/01/21 documented as of this encounter
== END 2024-08-26 13:42 | disposition home or self-care (01) ==
LOC: ANHIMG 13:45
PROVIDERS: PCP Student in an Organized Health Care Education/Training Program; Visit Provider Internal Medicine Endocrinology, Diabetes & Metabolism
DX: M85.89 Other specified disorders of bone density and structure, multiple sites (principal); E55.9 Vitamin D deficiency, unspecified; M81.0 Age-related osteoporosis without current pathological fracture
CPT/HCPCS: 77080